=== PATIENT | female | born 1935 | race Caucasian/White ===

== ENCOUNTER → 2018-01-02 | Outpatient (CLI) | payer MEDICARE, BC ==
[~2018-01-02] MED LIST: APIX5TAB PO; BENZ-17 PO; CALC600T23 PO; CETI10CA PO; HYDR25TA6 PO; IBUP-1222 PO; LEVO50TA5 PO; LISI1TAB7 PO; LOVA10TA PO; METO50TA82 PO; RIVA20TA PO; VIT D2 PO; VIT1CAPS11 PO; VIT1TABL34 PO
== END | disposition home or self-care (01) ==
LOC: CFH 13:37
PROVIDERS: ATTEND Family Medicine
DX: M19.012 Primary osteoarthritis, left shoulder (principal); M75.102 Unspecified rotator cuff tear or rupture of left shoulder, not specified as traumatic

== ENCOUNTER → 2018-03-13 | Outpatient (CLI) | payer MEDICARE, BC | END | disposition home or self-care (01) | LOC: EDSTATUS 03-06 11:15 → CFH 10:15 → EDSTATUS 10:30 | PROVIDERS: ATTEND Internal Medicine Hematology & Oncology | DX: M85.9 Disorder of bone density and structure, unspecified (principal); N95.1 Menopausal and female climacteric states; Z85.3 Personal history of malignant neoplasm of breast | CPT/HCPCS: 78306; A9503 ==

== ENCOUNTER 2018-05-08 08:29 | Observation (INO) | payer BC, MEDICARE ==
[2018-05-06 13:08] VITALS: BP 164/99
[~2018-05-08] VITALS: Ht 165.1 cm; Wt 63.8 kg
[~2018-05-08 08:29] MED LIST changes: +AMLO2.5T5 PO; +IRBE300T16 PO; +MULT-717 PO; +TRAM50TA2 PO
[2018-05-08] MEDS ORDERED: FENTANYL PF 250 MCG/5ML ONE (10:54)
[2018-05-08 11:07] LABS: BASOPHILS # (AUTO) 0.02 x10^3/uL (0-0.1); BASOPHILS % (AUTO) 0 % (0-1); EOSINOPHILS # (AUTO) 0.11 x10^3/uL (0-0.4); EOSINOPHILS % (AUTO) 2 % (1-7); LYMPHOCYTES # (AUTO) 0.84 x10^3/uL (1-3.4); LYMPHOCYTES % (AUTO) 15 % (22-44); MD NO; MEAN CORPUSCULAR HEMOGLOBIN 31.8 pg (27.0-34.8); MEAN CORPUSCULAR VOLUME 96.3 fL (80-100); MEAN PLATELET VOLUME 7.6 fL (7.4-10.4); MONOCYTES # (AUTO) 0.38 x10^3/uL (0.2-0.8); MONOCYTES % (AUTO) 7 % (2-9); NEUTROPHILS # (AUTO) 4.36 x10^3/uL (1.8-6.8); NEUTROPHILS % (AUTO) 76 % (42-75); PLATELET COUNT 199 x10^3/uL (130-400); RED BLOOD COUNT 4.25 x10^6/uL (3.82-5.3); RED CELL DISTRIBUTION WIDTH 13.1 % (9.6-15.2)
[2018-05-08] MEDS ORDERED: SUCCINYLCHOLINE 20 MG/ML, 10ML ONE (12:32)
[2018-05-08] MEDS ORDERED: PROPOFOL 10 MG/ML, 20ML ONE (12:32)
[2018-05-08] MEDS ORDERED: ROCURONIUM 10MG/ML,5ML ONE (12:32)
[2018-05-08] MEDS ORDERED: APIXABAN 5 MG TABLET ONE (13:42)
[2018-05-08] MEDS ORDERED: LABETALOL 5MG/ML, 20ML IV PRN (14:00)
[2018-05-08] MEDS ORDERED: ALBUTEROL SULFATE 2.5 MG/3 ML NPPB PRN (14:00)
[2018-05-08] MEDS ORDERED: ERGOCALCIFEROL 50000 UNIT PO SCH (14:00)
[2018-05-08] MEDS ORDERED: ONDANSETRON 2MG/ML, 2ML IV PRN (14:00)
[2018-05-08] MEDS ORDERED: OXYcodone 5 MG/5 ML ORAL.SOL UDC PO PRN (14:00)
[2018-05-08] MEDS ORDERED: HALOPERIDOL 5 MG/ML IV PRN (14:00)
[2018-05-08] MEDS ORDERED: MORPHINE SULFATE 4 MG/ML, 1ML IVPush PRN (14:00)
[2018-05-08] MEDS ORDERED: HYDROmorphone 2 MG/ML, 1ML IVPush PRN (14:00)
[2018-05-08] MEDS ORDERED: FENTANYL PF 100 MCG/2ML IV PRN (14:00)
[2018-05-08] MEDS ORDERED: MEPERIDINE/PF 25MG/0.5ML IVPush PRN (14:00)
[2018-05-08] MEDS ORDERED: BENZONATATE 100 MG PO PRN (14:00)
[2018-05-08] MEDS ORDERED: ONDANSETRON ODT 8 MG PO PRN (14:00)
[2018-05-08] MEDS ORDERED: EPHEDRINE 50 MG/ML, 1ML IVPush PRN (14:00)
[2018-05-08] MEDS ORDERED: DIAZEPAM 5 MG/ML, 2ML IVPush PRN (14:00)
[2018-05-08] MEDS ORDERED: PROMETHAZINE 12.5 MG SUPP PR PRN (14:00)
[2018-05-08] MEDS ORDERED: hydrALAzine 20 MG/ML, 1ML IV PRN (14:00)
[2018-05-08] MEDS ORDERED: ACETAMINOPHEN 325 MG TABLET PO PRN ×2 (14:00)
[2018-05-08] MEDS ORDERED: TEMPLATE NON-FORMULARY MED. (Tramadol Hcl** 50 MG) PO PRN (14:00)
[2018-05-08] MEDS ORDERED: MIDAZOLAM 1 MG/ML, 2ML IV PRN (14:00)
[2018-05-08] MEDS ORDERED: PROMETHAZINE 25 MG/ML, 1ML IV PRN (14:00)
[2018-05-08] MEDS ORDERED: ONDANSETRON 2MG/ML, 2ML ONE (15:11)
[2018-05-08] MEDS ORDERED: DEXAMETHASONE 4 MG/ML, 1ML ONE (15:11)
[2018-05-08] MEDS ORDERED: EPHEDRINE 50 MG/ML, 1ML ONE (15:11)
[2018-05-08 15:35] VITALS: BP 152/95
[2018-05-08 20:50] VITALS: BP 134/90
[2018-05-08] MEDS ORDERED: LOVASTATIN 10 MG PO SCH (21:00)
[2018-05-08] MEDS: CALCIUM CARBONATE 600 MG PO SCH (21:00)
[2018-05-08] MEDS: METOPROLOL TARTRATE 50 MG TABLET PO SCH (21:22)
[2018-05-08] MEDS: APIXABAN 5 MG TABLET PO SCH (21:23)
[2018-05-09 03:18] VITALS: BP 123/83
[2018-05-09 07:25] VITALS: BP 130/74
[2018-05-09] MEDS ORDERED: TEMPLATE NON-FORMULARY MED. (Multivits-Min/Fa/Lycopene/Lut** (Centrum Silver Tablet**) 1 T PO SCH (09:00)
[2018-05-09] MEDS ORDERED: TEMPLATE NON-FORMULARY MED. (Amlodipine Besylate** 2.5 MG) PO SCH (09:00)
[2018-05-09] MEDS ORDERED: IRBESARTAN 300 MG TABLET PO SCH (09:00)
[2018-05-09] MEDS ORDERED: TEMPLATE NON-FORMULARY MED. (Cetirizine Hcl** (Zyrtec**) 10 MG) PO SCH (09:00)
[2018-05-09] MEDS ORDERED: LEVOTHYROXINE 50 MCG TABLET PO SCH (09:00)
[2018-05-09] MEDS: CALCIUM CARBONATE 600 MG PO SCH (10:10)
[2018-05-09] MEDS: APIXABAN 5 MG TABLET PO SCH (10:11)
[2018-05-09] MEDS: METOPROLOL TARTRATE 50 MG TABLET PO SCH (10:11)
== END 2018-05-09 12:15 | disposition home or self-care (01) ==
LOC: CACL 08:29 → ORIP 13:42 → 5SO 16:56 → DCLOUNGE 05-09 12:00
PROVIDERS: ADMIT Internal Medicine Cardiovascular Disease; ATTEND Internal Medicine Cardiovascular Disease
DX: I48.92 Unspecified atrial flutter (principal); I48.91 Unspecified atrial fibrillation; I45.9 Conduction disorder, unspecified; Z86.73 Personal history of transient ischemic attack (TIA), and cerebral infarction without residual deficits
CPT/HCPCS: 36415; 71046; 80053; 80061; 85025; 93308; 93312; 93321; 93325; 93613; 93653; C1730; C1731; C1894; C2630; G0378; J0330; J1100; J2405; J2704; J3010

== ENCOUNTER → 2019-04-29 | Outpatient (CLI) | payer BC ==
[~2019-04-29] MED LIST changes: -IRBE300T16 PO; +IRBE300T8 PO; +LISI1TAB20 PO; -LISI1TAB7 PO
== END | disposition home or self-care (01) ==
LOC: CFH 10:36
PROVIDERS: ATTEND Nurse Practitioner
DX: Z12.31 Encounter for screening mammogram for malignant neoplasm of breast (principal); N64.89 Other specified disorders of breast; Z90.12 Acquired absence of left breast and nipple
CPT/HCPCS: 77067

== ENCOUNTER 2019-08-18 20:00 | Inpatient (IN) | payer MEDICARE ==
[~2019-08-18] VITALS: Ht 165.1 cm; Wt 74.0 kg
[~2019-08-18 20:00] MED LIST changes: +AMIO200T42 PO; +CALC1CAP8 PO; +ERGO500017 PO; +LEVO75TA5 PO; +TELM80TA8 PO; +VIT1TABL32 PO
[2019-08-18] MEDS ORDERED: SODIUM CHLORIDE FLUSH 10ML SYR IVF ONE (21:30)
[2019-08-18 21:48] LABS: BASOPHILS # (AUTO) 0.01 x10^3/uL (0-0.1); BASOPHILS % (AUTO) 0 % (0-1); EOSINOPHILS # (AUTO) 0.05 x10^3/uL (0-0.4); EOSINOPHILS % (AUTO) 1 % (1-7); LYMPHOCYTES # (AUTO) 0.65 x10^3/uL (1-3.4); LYMPHOCYTES % (AUTO) 11 % (22-44); MD NO; MEAN CORPUSCULAR HEMOGLOBIN 31.9 pg (27.0-34.8); MEAN CORPUSCULAR HGB CONC 33.4 g/dL (32.4-35.8); MEAN CORPUSCULAR VOLUME 95.5 fL (80-100); MONOCYTES # (AUTO) 0.29 x10^3/uL (0.2-0.8); MONOCYTES % (AUTO) 5 % (2-9); NEUTROPHILS # (AUTO) 5.04 x10^3/uL (1.8-6.8); NEUTROPHILS % (AUTO) 83 % (42-75); PLATELET COUNT 167 x10^3/uL (130-400); RED BLOOD COUNT 4.01 x10^6/uL (3.82-5.3); RED CELL DISTRIBUTION WIDTH 13.8 % (9.6-15.2)
[2019-08-18 21:59] LABS: ALANINE AMINOTRANSFERASE 25 U/L (12-78); ANION GAP 3 mmol/L (5-15); CALCIUM 9.4 mg/dL (8.5-10.1); CHLORIDE 100 mmol/L (98-107)
[2019-08-18 22:01] LABS: ALKALINE PHOSPHATASE 106 U/L (45-117); BILIRUBIN,TOTAL 0.9 mg/dL (0.2-1.0); CREATININE 1.23 mg/dL (0.55-1.02); TOTAL PROTEIN 7.9 g/dL (6.4-8.2)
[2019-08-18 22:06] LABS: INTERNATIONAL NORMALIZED RATIO 1.06 (0.93-1.1); PROTHROMBIN TIME 11.2 Seconds (9.6-11.5)
--- NOTE | 2019-08-18 22:06 | NUR ---
EMERGENCY CONTACT TAY [phone] DAUGHTER
[2019-08-19] MEDS ORDERED: TRAZODONE 50MG TABLET PO PRN
[2019-08-19] MEDS ORDERED: BENZONATATE 100 MG CAPSULE PO PRN
[2019-08-19] MEDS ORDERED: hydrALAzine 20 MG/ML, 1ML IVPush PRN
[2019-08-19] MEDS ORDERED: ONDANSETRON 2MG/ML, 2ML IVPush PRN
[2019-08-19] MEDS ORDERED: AMIODARONE 200 MG TABLET PO SCH
[2019-08-19 00:01] VITALS: BP 177/78
[2019-08-19] MEDS: HYDROmorphone 2 MG/ML, 1ML IVPush PRN (00:29)
[2019-08-19 01:01] LABS: FREE T4 (FREE THYROXINE) 1.38 ng/dL (0.76-1.46)
[2019-08-19 07:46] VITALS: BP 161/77
[2019-08-19 08:25] VITALS: BP 144/67
[2019-08-19] MEDS: SENNA/DOCUSATE TABLET PO SCH (08:32)
[2019-08-19] MEDS: CETIRIZINE 10 MG TABLET PO SCH (08:32)
[2019-08-19] MEDS: ACETAMINOPHEN 325 MG TABLET PO PRN ×2 (08:33→19:20)
[2019-08-19] MEDS ORDERED: AMIO100T4 PO (08:56)
[2019-08-19] MEDS ORDERED: HYDROCHLOROTHIAZIDE 25 MG TABLET PO SCH (09:00)
[2019-08-19] MEDS: AMLODIPINE 2.5 MG TABLET PO SCH (09:00)
[2019-08-19] MEDS ORDERED: PHARMACY MAY ADJ FOR RENAL FX MC PRN (11:00)
[2019-08-19] MEDS: HEPARIN 5,000 UNITS/ML, 1ML SQ SCH ×3 (11:17→19:22)
[2019-08-19] MEDS: ERGOCALCIFEROL 50,000 UNIT CAPSULE PO SCH ×2 (11:18→12:00)
[2019-08-19 13:53] VITALS: BP 123/70
[2019-08-19 18:54] VITALS: BP 175/75
[2019-08-19] MEDS: CALCIUM/VITAMIN D3 250-125 TABLET PO SCH (20:03)
[2019-08-19] MEDS: LOVASTATIN 10 MG TABLET PO SCH (20:03)
[2019-08-20 00:58] VITALS: BP 130/75
[2019-08-20] MEDS ORDERED: LACTATED RINGERS 500 ML IV SCH (01:30)
[2019-08-20] MEDS ORDERED: LACTATED RINGERS 1,000 ML IV SCH (02:00)
[2019-08-20 05:30] LABS: BASOPHILS # (AUTO) 0.02 x10^3/uL (0-0.1); BASOPHILS % (AUTO) 0 % (0-1); EOSINOPHILS # (AUTO) 0.13 x10^3/uL (0-0.4); EOSINOPHILS % (AUTO) 3 % (1-7); LYMPHOCYTES # (AUTO) 0.82 x10^3/uL (1-3.4); LYMPHOCYTES % (AUTO) 16 % (22-44); MD NO; MEAN CORPUSCULAR HEMOGLOBIN 31.9 pg (27.0-34.8); MEAN CORPUSCULAR HGB CONC 33.5 g/dL (32.4-35.8); MEAN CORPUSCULAR VOLUME 95.2 fL (80-100); MEAN PLATELET VOLUME 7.1 fL (7.4-10.4); MONOCYTES # (AUTO) 0.42 x10^3/uL (0.2-0.8); MONOCYTES % (AUTO) 8 % (2-9); NEUTROPHILS # (AUTO) 3.78 x10^3/uL (1.8-6.8); NEUTROPHILS % (AUTO) 73 % (42-75); PLATELET COUNT 158 x10^3/uL (130-400); RED BLOOD COUNT 3.99 x10^6/uL (3.82-5.3); RED CELL DISTRIBUTION WIDTH 13.6 % (9.6-15.2)
[2019-08-20 05:41] LABS: ANION GAP 5 mmol/L (5-15); CALCIUM 9.1 mg/dL (8.5-10.1); CHLORIDE 94 mmol/L (98-107); CREATININE 0.95 mg/dL (0.55-1.02)
[2019-08-20] MEDS ORDERED: ACETAMINOPHEN 500 MG TABLET ONE (06:34)
[2019-08-20] MEDS ORDERED: CHLORHEXIDINE 15 ML UDC ONE (06:34)
[2019-08-20] MEDS ORDERED: PROPOFOL 10 MG/ML, 20ML ONE (06:48)
[2019-08-20] MEDS ORDERED: LIDOCAINE-MPF 2% ,5ML ONE (06:48)
[2019-08-20] MEDS ORDERED: FENTANYL PF 100 MCG/2ML ONE ×2 (06:48→09:22)
[2019-08-20] MEDS ORDERED: ACETAMINOPHEN 500 MG TABLET PO ONE (07:00)
[2019-08-20] MEDS ORDERED: CHLORHEXIDINE 15 ML UDC MM ONE (07:00)
[2019-08-20] MEDS ORDERED: EPHEDRINE 50 MG/ML, 1ML ONE (07:01)
[2019-08-20] MEDS ORDERED: DEXAMETHASONE 4 MG/ML, 1ML ONE ×2 (07:14)
[2019-08-20] MEDS ORDERED: CEFAZOLIN 1,000 MG ONE (07:14)
[2019-08-20] MEDS ORDERED: OXYcodone 5 MG/5 ML ORAL.SOL UDC PO PRN (07:30)
[2019-08-20] MEDS ORDERED: PROMETHAZINE 25 MG/ML, 1ML IVPush PRN (07:30)
[2019-08-20] MEDS ORDERED: ONDANSETRON 2MG/ML, 2ML ONE (08:50)
[2019-08-20] MEDS ORDERED: LEVOTHYROXINE 50 MCG TABLET PO SCH (09:00)
[2019-08-20] MEDS: CALCIUM/VITAMIN D3 250-125 TABLET PO SCH ×2 (09:00→22:57)
[2019-08-20] MEDS: SENNA/DOCUSATE TABLET PO SCH (09:00)
[2019-08-20] MEDS: AMLODIPINE 2.5 MG TABLET PO SCH (09:00)
[2019-08-20] MEDS: TEMPLATE NON-FORMULARY MED. (Vit A,C & E/Lutein/Minerals** (Ocuvite Tablet**) 1 TAB) PO SCH (09:00)
[2019-08-20] MEDS ORDERED: OXYcodone 5 MG/5 ML ORAL.SOL UDC ONE (09:22)
[2019-08-20] MEDS ORDERED: KETOROLAC 30 MG/1 ML ONE (09:22)
[2019-08-20] MEDS ORDERED: KETOROLAC 30 MG/1 ML IVPush ONE ×2 (09:30)
[2019-08-20] MEDS: FENTANYL PF 100 MCG/2ML IV PRN ×2 (09:31→09:36)
[2019-08-20] MEDS: CETIRIZINE 10 MG TABLET PO SCH (10:24)
[2019-08-20] MEDS: LOSARTAN 100 MG TAB PO SCH (10:24)
[2019-08-20] MEDS: HEPARIN 5,000 UNITS/ML, 1ML SQ SCH ×2 (11:15→17:41)
[2019-08-20 13:00] VITALS: BP 117/75
[2019-08-20] MEDS: SODIUM CHLORIDE 0.9% 1,000 ML IV SCH (14:24)
[2019-08-20] MEDS: CEFAZOLIN PMX 1GM/50ML 50 ML IV SCH ×2 (15:31→22:57)
[2019-08-20] MEDS: APIXABAN 5 MG TABLET PO SCH (17:55)
[2019-08-20] MEDS: AMIODARONE 200 MG TABLET PO SCH (17:56)
[2019-08-20 18:44] VITALS: BP 118/70
[2019-08-20] MEDS: LOVASTATIN 10 MG TABLET PO SCH (22:56)
[2019-08-21 00:28] VITALS: BP 112/69
[2019-08-21] MEDS ORDERED: LACTATED RINGERS 1,000 ML IV SCH (01:30)
[2019-08-21] MEDS: SODIUM CHLORIDE 0.9% 1,000 ML IV SCH ×2 (03:22→14:07)
[2019-08-21 03:33] VITALS: BP 112/70
[2019-08-21] MEDS: LEVOTHYROXINE 75 MCG TABLET PO SCH (06:49)
[2019-08-21] MEDS: CEFAZOLIN PMX 1GM/50ML 50 ML IV SCH ×2 (06:51→07:45)
[2019-08-21 07:01] VITALS: BP 113/62
[2019-08-21 08:19] VITALS: BP 102/57
[2019-08-21] MEDS: TEMPLATE NON-FORMULARY MED. (Vit A,C & E/Lutein/Minerals** (Ocuvite Tablet**) 1 TAB) PO SCH (08:20)
[2019-08-21] MEDS: LOSARTAN 100 MG TAB PO SCH (08:21)
[2019-08-21] MEDS: APIXABAN 5 MG TABLET PO SCH ×2 (08:21→22:13)
[2019-08-21] MEDS: CALCIUM/VITAMIN D3 250-125 TABLET PO SCH ×2 (08:21→22:13)
[2019-08-21] MEDS: AMIODARONE 200 MG TABLET PO SCH (08:21)
[2019-08-21] MEDS: CETIRIZINE 10 MG TABLET PO SCH (08:21)
[2019-08-21] MEDS: AMLODIPINE 2.5 MG TABLET PO SCH (08:21)
[2019-08-21] MEDS: SENNA/DOCUSATE TABLET PO SCH (08:22)
[2019-08-21] MEDS ORDERED: LEVOTHYROXINE 75 MCG TABLET PO SCH (09:00)
[2019-08-21 10:42] LABS: MEAN CORPUSCULAR HEMOGLOBIN 32.6 pg (27.0-34.8); MEAN CORPUSCULAR HGB CONC 33.7 g/dL (32.4-35.8); MEAN PLATELET VOLUME 7.6 fL (7.4-10.4); PLATELET COUNT 154 x10^3/uL (130-400); RED BLOOD COUNT 2.91 x10^6/uL (3.82-5.3); RED CELL DISTRIBUTION WIDTH 13.7 % (9.6-15.2)
[2019-08-21 10:44] LABS: ANION GAP 7 mmol/L (5-15); CALCIUM 8.3 mg/dL (8.5-10.1); CHLORIDE 93 mmol/L (98-107); CREATININE 1.03 mg/dL (0.55-1.02)
[2019-08-21 11:14] LABS: BASOPHILS # (AUTO) 0.01 x10^3/uL (0-0.1); BASOPHILS % (AUTO) 0 % (0-1); EOSINOPHILS % (AUTO) 0 % (1-7); LYMPHOCYTES % (AUTO) 6 % (22-44); MD SCAN; MONOCYTES # (AUTO) 0.66 x10^3/uL (0.2-0.8); MONOCYTES % (AUTO) 8 % (2-9); NEUTROPHILS # (AUTO) 7.09 x10^3/uL (1.8-6.8); NEUTROPHILS % (AUTO) 86 % (42-75)
[2019-08-21 13:21] VITALS: BP 103/56
[2019-08-21 16:31] LABS: MICROSCOPIC AUTO
[2019-08-21 18:40] VITALS: BP_SYST 124; BP_SYST 97; BP_DIAS 54; BP_DIAS 76
[2019-08-21] MEDS: ACETAMINOPHEN 325 MG TABLET PO PRN (22:12)
[2019-08-21] MEDS: LOVASTATIN 10 MG TABLET PO SCH (22:13)
[2019-08-21] MEDS: HYDROmorphone 2 MG/ML, 1ML IVPush PRN (22:46)
[2019-08-22 00:29] VITALS: BP 101/60
[2019-08-22 05:04] LABS: BASOPHILS # (AUTO) 0.03 x10^3/uL (0-0.1); BASOPHILS % (AUTO) 0 % (0-1); EOSINOPHILS # (AUTO) 0.13 x10^3/uL (0-0.4); EOSINOPHILS % (AUTO) 2 % (1-7); LYMPHOCYTES # (AUTO) 0.84 x10^3/uL (1-3.4); LYMPHOCYTES % (AUTO) 12 % (22-44); MD NO; MEAN CORPUSCULAR HEMOGLOBIN 32.5 pg (27.0-34.8); MEAN CORPUSCULAR HGB CONC 33.4 g/dL (32.4-35.8); MEAN CORPUSCULAR VOLUME 97.3 fL (80-100); MEAN PLATELET VOLUME 7.5 fL (7.4-10.4); MONOCYTES # (AUTO) 0.67 x10^3/uL (0.2-0.8); MONOCYTES % (AUTO) 10 % (2-9); NEUTROPHILS # (AUTO) 5.14 x10^3/uL (1.8-6.8); NEUTROPHILS % (AUTO) 76 % (42-75); PLATELET COUNT 145 x10^3/uL (130-400); RED BLOOD COUNT 2.59 x10^6/uL (3.82-5.3); RED CELL DISTRIBUTION WIDTH 13.7 % (9.6-15.2)
[2019-08-22 05:10] LABS: ANION GAP 5 mmol/L (5-15); CALCIUM 8.5 mg/dL (8.5-10.1); CHLORIDE 90 mmol/L (98-107)
[2019-08-22 05:11] LABS: CREATININE 1.22 mg/dL (0.55-1.02)
[2019-08-22] MEDS: LEVOTHYROXINE 50 MCG TABLET PO SCH (06:43)
[2019-08-22 07:25] VITALS: BP 111/62
[2019-08-22] MEDS: AMIODARONE 200 MG TABLET PO SCH (09:01)
[2019-08-22] MEDS: ACETAMINOPHEN 325 MG TABLET PO SCH ×3 (09:02→20:34)
[2019-08-22] MEDS: APIXABAN 5 MG TABLET PO SCH ×2 (09:02→20:34)
[2019-08-22] MEDS: CETIRIZINE 10 MG TABLET PO SCH (09:02)
[2019-08-22] MEDS: SENNA/DOCUSATE TABLET PO SCH (09:02)
[2019-08-22] MEDS: CALCIUM/VITAMIN D3 250-125 TABLET PO SCH ×2 (09:03→20:34)
[2019-08-22] MEDS: TEMPLATE NON-FORMULARY MED. (Vit A,C & E/Lutein/Minerals** (Ocuvite Tablet**) 1 TAB) PO SCH (09:03)
[2019-08-22] MEDS: LOSARTAN 50MG TABLET PO SCH (09:30)
[2019-08-22 11:55] VITALS: BP 108/64
[2019-08-22 12:37] VITALS: BP 108/64
[2019-08-22] MEDS ORDERED: SODIUM CHLORIDE 0.9%, 500ML IVBOLUS ONE (17:30)
[2019-08-22] MEDS: SODIUM CHLORIDE 1 GM TABLET PO SCH ×2 (18:28→23:49)
[2019-08-22 20:22] VITALS: BP_SYST 122; BP_SYST 135; BP_DIAS 75; BP_DIAS 88
[2019-08-22] MEDS: LOVASTATIN 10 MG TABLET PO SCH (20:34)
[2019-08-22 20:57] LABS: ANION GAP 6 mmol/L (5-15); CALCIUM 8.9 mg/dL (8.5-10.1); CHLORIDE 92 mmol/L (98-107); CREATININE 1.34 mg/dL (0.55-1.02)
[2019-08-22] MEDS ORDERED: SODIUM CHLORIDE 1 GM TABLET PO SCH (21:00)
[2019-08-22] MEDS: OXYcodone IR 5MG TABLET PO PRN (23:50)
[2019-08-23 02:09] VITALS: BP 111/63
[2019-08-23] MEDS: LEVOTHYROXINE 75 MCG TABLET PO SCH (05:28)
[2019-08-23] MEDS: ACETAMINOPHEN 325 MG TABLET PO SCH ×3 (05:28→18:00)
[2019-08-23 05:58] LABS: ANION GAP 5 mmol/L (5-15); CHLORIDE 96 mmol/L (98-107); CREATININE 0.96 mg/dL (0.55-1.02)
[2019-08-23 06:02] LABS: BASOPHILS # (AUTO) 0.02 x10^3/uL (0-0.1); BASOPHILS % (AUTO) 0 % (0-1); EOSINOPHILS # (AUTO) 0.15 x10^3/uL (0-0.4); EOSINOPHILS % (AUTO) 3 % (1-7); LYMPHOCYTES # (AUTO) 0.74 x10^3/uL (1-3.4); LYMPHOCYTES % (AUTO) 15 % (22-44); MD NO; MEAN CORPUSCULAR HGB CONC 34.4 g/dL (32.4-35.8); MEAN PLATELET VOLUME 7.4 fL (7.4-10.4); MONOCYTES # (AUTO) 0.52 x10^3/uL (0.2-0.8); MONOCYTES % (AUTO) 10 % (2-9); NEUTROPHILS # (AUTO) 3.63 x10^3/uL (1.8-6.8); NEUTROPHILS % (AUTO) 72 % (42-75); PLATELET COUNT 147 x10^3/uL (130-400); RED BLOOD COUNT 2.57 x10^6/uL (3.82-5.3); RED CELL DISTRIBUTION WIDTH 13.8 % (9.6-15.2)
[2019-08-23 07:35] VITALS: BP 130/64
[2019-08-23] MEDS: TEMPLATE NON-FORMULARY MED. (Vit A,C & E/Lutein/Minerals** (Ocuvite Tablet**) 1 TAB) PO SCH (07:53)
[2019-08-23] MEDS: AMIODARONE 200 MG TABLET PO SCH (07:54)
[2019-08-23] MEDS: SODIUM CHLORIDE 1 GM TABLET PO SCH (07:54)
[2019-08-23] MEDS: SENNA/DOCUSATE TABLET PO SCH ×2 (07:54→21:22)
[2019-08-23] MEDS: APIXABAN 5 MG TABLET PO SCH ×2 (07:54→21:23)
[2019-08-23] MEDS: CETIRIZINE 10 MG TABLET PO SCH (07:54)
[2019-08-23] MEDS: CALCIUM/VITAMIN D3 250-125 TABLET PO SCH ×2 (07:54→21:23)
[2019-08-23] MEDS: LOSARTAN 50MG TABLET PO SCH (07:55)
[2019-08-23] MEDS ORDERED: LOSARTAN 50MG TABLET PO SCH (09:00)
[2019-08-23] MEDS: OXYcodone IR 5MG TABLET PO PRN (12:40)
[2019-08-23] MEDS ORDERED: BISACODYL 10 MG SUPP PR PRN (13:30)
[2019-08-23] MEDS ORDERED: POLYETHYLENE GLYCOL 17 GM PACKET NG ONE (13:30)
[2019-08-23 13:42] VITALS: BP 110/61
[2019-08-23 20:15] VITALS: BP 111/62
[2019-08-23] MEDS: LOVASTATIN 10 MG TABLET PO SCH (21:23)
[2019-08-24] VITALS (8 sets, daily range): BP systolic 121–161; BP diastolic 66–78
[2019-08-24] MEDS: ACETAMINOPHEN 325 MG TABLET PO SCH ×5 (00:41→23:12)
[2019-08-24 05:57] LABS: ANION GAP 5 mmol/L (5-15); CALCIUM 8.5 mg/dL (8.5-10.1); CHLORIDE 97 mmol/L (98-107); MEAN CORPUSCULAR HEMOGLOBIN 32.5 pg (27.0-34.8); MEAN CORPUSCULAR HGB CONC 33.9 g/dL (32.4-35.8); MEAN CORPUSCULAR VOLUME 95.8 fL (80-100); PLATELET COUNT 157 x10^3/uL (130-400); RED BLOOD COUNT 2.22 x10^6/uL (3.82-5.3); RED CELL DISTRIBUTION WIDTH 13.5 % (9.6-15.2)
[2019-08-24 06:00] LABS: CREATININE 0.83 mg/dL (0.55-1.02)
[2019-08-24 06:31] LABS: BASOPHILS # (AUTO) 0.02 x10^3/uL (0-0.1); BASOPHILS % (AUTO) 1 % (0-1); EOSINOPHILS # (AUTO) 0.08 x10^3/uL (0-0.4); EOSINOPHILS % (AUTO) 2 % (1-7); LYMPHOCYTES # (AUTO) 0.79 x10^3/uL (1-3.4); LYMPHOCYTES % (AUTO) 17 % (22-44); MD SCAN; MONOCYTES % (AUTO) 9 % (2-9); NEUTROPHILS # (AUTO) 3.29 x10^3/uL (1.8-6.8); NEUTROPHILS % (AUTO) 72 % (42-75)
[2019-08-24] MEDS: LEVOTHYROXINE 50 MCG TABLET PO SCH (06:34)
[2019-08-24] MEDS: CALCIUM/VITAMIN D3 250-125 TABLET PO SCH ×2 (08:20→21:07)
[2019-08-24] MEDS: CETIRIZINE 10 MG TABLET PO SCH (08:20)
[2019-08-24] MEDS: AMIODARONE 200 MG TABLET PO SCH (08:20)
[2019-08-24] MEDS: SENNA/DOCUSATE TABLET PO SCH ×2 (08:20→21:06)
[2019-08-24] MEDS: LOSARTAN 50MG TABLET PO SCH (08:21)
[2019-08-24] MEDS: APIXABAN 5 MG TABLET PO SCH ×2 (08:21→21:06)
[2019-08-24] MEDS: TEMPLATE NON-FORMULARY MED. (Vit A,C & E/Lutein/Minerals** (Ocuvite Tablet**) 1 TAB) PO SCH (08:22)
[2019-08-24] MEDS ORDERED: ACETAMINOPHEN 325 MG TABLET PO ONE (11:30)
[2019-08-24] MEDS: LOVASTATIN 10 MG TABLET PO SCH (21:07)
[2019-08-25 04:39] VITALS: BP 158/84
[2019-08-25] MEDS: LEVOTHYROXINE 75 MCG TABLET PO SCH (06:12)
[2019-08-25] MEDS: ACETAMINOPHEN 325 MG TABLET PO SCH ×4 (06:12→23:51)
[2019-08-25 07:01] LABS: BASOPHILS # (AUTO) 0.02 x10^3/uL (0-0.1); BASOPHILS % (AUTO) 0 % (0-1); EOSINOPHILS # (AUTO) 0.13 x10^3/uL (0-0.4); EOSINOPHILS % (AUTO) 3 % (1-7); LYMPHOCYTES # (AUTO) 0.72 x10^3/uL (1-3.4); LYMPHOCYTES % (AUTO) 17 % (22-44); MD NO; MEAN CORPUSCULAR HEMOGLOBIN 32.2 pg (27.0-34.8); MEAN CORPUSCULAR HGB CONC 34.1 g/dL (32.4-35.8); MEAN CORPUSCULAR VOLUME 94.3 fL (80-100); MEAN PLATELET VOLUME 6.9 fL (7.4-10.4); MONOCYTES # (AUTO) 0.38 x10^3/uL (0.2-0.8); MONOCYTES % (AUTO) 9 % (2-9); NEUTROPHILS # (AUTO) 2.97 x10^3/uL (1.8-6.8); NEUTROPHILS % (AUTO) 70 % (42-75); PLATELET COUNT 181 x10^3/uL (130-400); RED BLOOD COUNT 2.71 x10^6/uL (3.82-5.3)
[2019-08-25 07:02] LABS: ANION GAP 5 mmol/L (5-15); CALCIUM 8.6 mg/dL (8.5-10.1); CHLORIDE 99 mmol/L (98-107); CREATININE 0.74 mg/dL (0.55-1.02)
[2019-08-25 07:15] VITALS: BP 150/75
[2019-08-25] MEDS: APIXABAN 5 MG TABLET PO SCH ×2 (08:46→20:01)
[2019-08-25] MEDS: CALCIUM/VITAMIN D3 250-125 TABLET PO SCH ×2 (08:46→20:01)
[2019-08-25] MEDS: LOSARTAN 50MG TABLET PO SCH (08:46)
[2019-08-25] MEDS: CETIRIZINE 10 MG TABLET PO SCH (08:47)
[2019-08-25] MEDS: AMIODARONE 200 MG TABLET PO SCH (08:47)
[2019-08-25] MEDS: SENNA/DOCUSATE TABLET PO SCH ×3 (08:47→20:02)
[2019-08-25] MEDS: TEMPLATE NON-FORMULARY MED. (Vit A,C & E/Lutein/Minerals** (Ocuvite Tablet**) 1 TAB) PO SCH (08:47)
[2019-08-25] MEDS ORDERED: HYDROcodone/APAP 5/325 TABLET PO PRN (09:00)
[2019-08-25 14:05] VITALS: BP 130/61
[2019-08-25 18:43] LABS: ANION GAP 5 mmol/L (5-15); CALCIUM 8.8 mg/dL (8.5-10.1); CHLORIDE 95 mmol/L (98-107)
[2019-08-25 18:44] LABS: CREATININE 0.88 mg/dL (0.55-1.02)
[2019-08-25 19:47] VITALS: BP 158/74
[2019-08-25] MEDS: LOVASTATIN 10 MG TABLET PO SCH (20:01)
[2019-08-26 01:19] VITALS: BP 154/79
[2019-08-26] MEDS: HYDROcodone/APAP 5/325 TABLET PO PRN ×3 (04:24→16:52)
[2019-08-26] MEDS: LEVOTHYROXINE 50 MCG TABLET PO SCH (05:58)
[2019-08-26] MEDS: ACETAMINOPHEN 325 MG TABLET PO SCH ×2 (05:58→12:20)
[2019-08-26 06:04] LABS: ANION GAP 8 mmol/L (5-15); CALCIUM 8.8 mg/dL (8.5-10.1); CHLORIDE 99 mmol/L (98-107); CREATININE 0.73 mg/dL (0.55-1.02)
[2019-08-26 06:21] LABS: BASOPHILS # (AUTO) 0.02 x10^3/uL (0-0.1); BASOPHILS % (AUTO) 1 % (0-1); EOSINOPHILS # (AUTO) 0.14 x10^3/uL (0-0.4); EOSINOPHILS % (AUTO) 3 % (1-7); LYMPHOCYTES % (AUTO) 14 % (22-44); MD NO; MEAN CORPUSCULAR HEMOGLOBIN 32.1 pg (27.0-34.8); MEAN CORPUSCULAR HGB CONC 33.9 g/dL (32.4-35.8); MEAN CORPUSCULAR VOLUME 94.8 fL (80-100); MEAN PLATELET VOLUME 6.7 fL (7.4-10.4); MONOCYTES # (AUTO) 0.47 x10^3/uL (0.2-0.8); MONOCYTES % (AUTO) 11 % (2-9); NEUTROPHILS # (AUTO) 3.14 x10^3/uL (1.8-6.8); NEUTROPHILS % (AUTO) 72 % (42-75); PLATELET COUNT 222 x10^3/uL (130-400); RED CELL DISTRIBUTION WIDTH 15.4 % (9.6-15.2)
[2019-08-26 07:23] VITALS: BP 159/87
[2019-08-26] MEDS: AMIODARONE 200 MG TABLET PO SCH (08:04)
[2019-08-26] MEDS: APIXABAN 5 MG TABLET PO SCH (08:05)
[2019-08-26] MEDS: CALCIUM/VITAMIN D3 250-125 TABLET PO SCH (08:05)
[2019-08-26] MEDS: CETIRIZINE 10 MG TABLET PO SCH (08:05)
[2019-08-26] MEDS: LOSARTAN 50MG TABLET PO SCH (08:06)
[2019-08-26] MEDS: SENNA/DOCUSATE TABLET PO SCH (08:06)
[2019-08-26] MEDS: TEMPLATE NON-FORMULARY MED. (Vit A,C & E/Lutein/Minerals** (Ocuvite Tablet**) 1 TAB) PO SCH (08:06)
[2019-08-26] MEDS ORDERED: AMLODIPINE 2.5 MG TABLET PO SCH (09:00)
[2019-08-26] MEDS: ERGOCALCIFEROL 50,000 UNIT CAPSULE PO SCH (12:19)
[2019-08-26 12:35] VITALS: BP 164/75
[2019-08-26] MEDS ORDERED: SENN-193 PO (14:20)
[2019-08-26 17:00] VITALS: BP 134/70
[2019-08-26] MEDS ORDERED: HYDR-3240 PO (17:05)
== END 2019-08-26 18:03 | DRG 469 ==
LOC: OR 21:56 → EDIP 21:58 → 4NE 23:52
PROVIDERS: ADMIT Family Medicine; ATTEND Internal Medicine
PROC: 30233N1 Transfusion of Nonautologous Red Blood Cells into Peripheral Vein, Percutaneous Approach (ICD-10-PCS; 2019-08-20)
PROC: 0SRR0J9 Replacement of Right Hip Joint, Femoral Surface with Synthetic Substitute, Cemented, Open Approach (ICD-10-PCS; principal; 2019-08-20 07:00)
DX: S72.001A Fracture of unspecified part of neck of right femur, initial encounter for closed fracture (principal); N17.0 Acute kidney failure with tubular necrosis; I48.92 Unspecified atrial flutter; I48.20 Chronic atrial fibrillation, unspecified; D68.69 Other thrombophilia; E87.1 Hypo-osmolality and hyponatremia; D62 Acute posthemorrhagic anemia; E03.9 Hypothyroidism, unspecified; E78.5 Hyperlipidemia, unspecified; G89.18 Other acute postprocedural pain; W01.0XXA Fall on same level from slipping, tripping and stumbling without subsequent striking against object, initial encounter; J30.2 Other seasonal allergic rhinitis; I10 Essential (primary) hypertension; I07.1 Rheumatic tricuspid insufficiency; R33.9 Retention of urine, unspecified; I25.10 Atherosclerotic heart disease of native coronary artery without angina pectoris; Z86.73 Personal history of transient ischemic attack (TIA), and cerebral infarction without residual deficits; Z90.10 Acquired absence of unspecified breast and nipple; Z85.3 Personal history of malignant neoplasm of breast; Z79.01 Long term (current) use of anticoagulants; Y93.89 Activity, other specified; Y92.89 Other specified places as the place of occurrence of the external cause; Y99.8 Other external cause status; Z79.899 Other long term (current) drug therapy
CPT/HCPCS: 36415; 71045; 72170; 80048; 80053; 81001; 83735; 84439; 84443; 85025; 85610; 86850; 86900; 86923; 87086; 93005; C1713; G0378; J0690; J1100; J1170; J1644; J1885; J2405; J2704; J3010; J7120; C1762; C1776; J0360; J7030; J7040; P9016

== ENCOUNTER 2020-09-12 10:02 | Observation (INO) | payer MEDICARE ==
[~2020-09-12] VITALS: Ht 165.1 cm; Wt 61.1 kg
[~2020-09-12 10:02] MED LIST changes: +AMIO100T4 PO; +HYDR-2214 PO; +SENN-193 PO
[2020-09-12 10:30] VITALS: BP 190/96
[2020-09-12] MEDS: SODIUM CHLORIDE 0.9% 1,000 ML IV SCH ×2 (10:30→14:49)
[2020-09-12] MEDS ORDERED: LEVO5TAB29 PO (10:42)
[2020-09-12] MEDS ORDERED: HYDR25TA6 PO (10:42)
[2020-09-12] MEDS ORDERED: CHOL20008 PO (10:46)
[2020-09-12] MEDS ORDERED: CHOL10003 PO (10:46)
[2020-09-12] MEDS ORDERED: TELM80TA PO (10:49)
[2020-09-12 11:28] LABS: BASOPHILS % (AUTO) 1 % (0-1); EOSINOPHILS % (AUTO) 2 % (1-7); LYMPHOCYTES % (AUTO) 16 % (22-44); MEAN CORPUSCULAR HEMOGLOBIN 33.2 pg (27.0-34.8); MEAN CORPUSCULAR HGB CONC 35.3 g/dL (32.4-35.8); MEAN PLATELET VOLUME 6.8 fL (7.4-10.4); MONOCYTES % (AUTO) 7 % (2-9); NEUTROPHILS % (AUTO) 74 % (42-75); PLATELET COUNT 148 x10^3/uL (130-400); RED BLOOD COUNT 3.86 x10^6/uL (3.82-5.3); RED CELL DISTRIBUTION WIDTH 13.1 % (9.6-15.2)
[2020-09-12 11:33] LABS: INTERNATIONAL NORMALIZED RATIO 1.09 (0.93-1.1); PROTHROMBIN TIME 11.6 Seconds (9.6-11.5)
[2020-09-12 11:35] LABS: ALBUMIN 3.8 g/dL (3.4-5.0); ANION GAP 6 mmol/L (5-15); CALCIUM 9.8 mg/dL (8.5-10.1); CHLORIDE 100 mmol/L (98-107)
[2020-09-12 11:39] LABS: ALANINE AMINOTRANSFERASE 22 U/L (12-78); ALKALINE PHOSPHATASE 110 U/L (45-117); BILIRUBIN,TOTAL 1.6 mg/dL (0.2-1.0); CREATININE 0.78 mg/dL (0.55-1.02); TOTAL PROTEIN 7.5 g/dL (6.4-8.2)
[2020-09-12] MEDS ORDERED: MIDAZOLAM 1 MG/ML, 2ML ONE (12:41)
[2020-09-12] MEDS ORDERED: FENTANYL PF 100 MCG/2ML ONE (12:41)
[2020-09-12] MEDS ORDERED: LIDOCAINE 1%, 20ML ONE (12:42)
[2020-09-12] MEDS ORDERED: CEFAZOLIN PMX 1GM/50ML 50 ML ONE (12:42)
[2020-09-12] MEDS ORDERED: CEFAZOLIN 1,000 MG ONE (12:42)
[2020-09-12 14:00] VITALS: BP 161/83
[2020-09-12] MEDS ORDERED: BENZONATATE 100 MG CAPSULE PO PRN (14:00)
[2020-09-12] MEDS ORDERED: HOLD MEDICATION MC PRN (14:00)
[2020-09-12] MEDS: CEFAZOLIN PMX 1GM/50ML 50 ML IVPB SCH ×2 (14:30→21:25)
[2020-09-12] MEDS ORDERED: AMLODIPINE 5 MG TABLET ONE (15:22)
[2020-09-12] MEDS ORDERED: hydrALAzine 20 MG/ML, 1ML ONE (15:23)
[2020-09-12] MEDS ORDERED: hydrALAzine 20 MG/ML, 1ML IV PRN (15:30)
[2020-09-12] MEDS ORDERED: AMLODIPINE 5 MG TABLET PO ONE (15:30)
[2020-09-12 19:08] VITALS: BP 124/77
[2020-09-12] MEDS ORDERED: LOVASTATIN 10 MG TABLET PO SCH (21:00)
[2020-09-12] MEDS: CALCIUM/VITAMIN D3 250-125 TABLET PO SCH (21:24)
[2020-09-12] MEDS: TEMPLATE NON-FORMULARY MED. (Telmisartan 80 MG) PO SCH (21:26)
[2020-09-12] MEDS: SODIUM CHLORIDE FLUSH 10ML SYR IVF SCH (21:26)
[2020-09-12] MEDS: ACETAMINOPHEN 325 MG TABLET PO PRN (23:58)
[2020-09-13] MEDS: SODIUM CHLORIDE 0.9% 1,000 ML IV SCH ×2 (00:29→08:49)
[2020-09-13 00:53] VITALS: BP 127/79
[2020-09-13] MEDS: CEFAZOLIN PMX 1GM/50ML 50 ML IVPB SCH (05:57)
[2020-09-13 06:50] VITALS: BP 136/76
[2020-09-13] MEDS: SODIUM CHLORIDE FLUSH 10ML SYR IVF SCH (08:47)
[2020-09-13] MEDS: ACETAMINOPHEN 325 MG TABLET PO PRN (08:48)
[2020-09-13] MEDS: CALCIUM/VITAMIN D3 250-125 TABLET PO SCH (08:49)
[2020-09-13] MEDS: TEMPLATE NON-FORMULARY MED. (Telmisartan 80 MG) PO SCH (08:50)
[2020-09-13] MEDS ORDERED: LEVOCETIRIZINE 5 MG TAB PO SCH (09:00)
[2020-09-13] MEDS ORDERED: AMIODARONE 200 MG TABLET PO SCH (09:00)
[2020-09-13] MEDS ORDERED: HYDROCHLOROTHIAZIDE 25 MG TABLET PO SCH (09:00)
[2020-09-13] MEDS ORDERED: CHOLECALCIFEROL 1,000 UNIT TABLET PO SCH (09:00)
[2020-09-13] MEDS ORDERED: LEVOTHYROXINE 75 MCG TABLET PO SCH (09:00)
[2020-09-14] MEDS ORDERED: LEVOTHYROXINE 50 MCG TABLET PO SCH (09:00)
== END 2020-09-13 10:45 | disposition home or self-care (01) ==
LOC: CACL 10:02 → 5SO 13:48 → CACL 14:30 → DCLOUNGE 09-13 10:35
PROVIDERS: ADMIT Internal Medicine Cardiovascular Disease; ATTEND Internal Medicine Cardiovascular Disease
DX: I49.5 Sick sinus syndrome (principal); I10 Essential (primary) hypertension; E78.5 Hyperlipidemia, unspecified; I48.91 Unspecified atrial fibrillation; Z79.01 Long term (current) use of anticoagulants; Z79.899 Other long term (current) drug therapy
CPT/HCPCS: 33208; 36415; 71045; 71046; 80053; 85025; 85610; 93005; 96365; 96366; 96375; 99156; 99157; C1779; C1785; C1892; G0378; J0360; J0690; J2250; J3010; J3490